=== PATIENT | female | born 1955 | race Caucasian/White ===

== ENCOUNTER → 2019-04-14 | Outpatient (CLI) | payer BC ==
--- NOTE | 2019-04-15 13:28 | MM ---
Reason for exam: screening (asymptomatic). Last mammogram was performed 1 year and 10 months ago. History: Patient is postmenopausal. Family history of breast cancer in mother. Physical Findings: A clinical breast exam by your physician is recommended on an annual basis and results should be correlated with mammographic findings. MG Screening Mammo w CAD Bilateral CC and MLO view(s) were taken. Prior study comparison: June 18, 2017, mammogram. The breast tissue is heterogeneously dense. This may lower the sensitivity of mammography. No suspicious abnormality. No significant changes when compared with prior studies. ASSESSMENT: Negative, BI-RAD 1 RECOMMENDATION: Routine screening mammogram of both breasts in 1 year.
== END | disposition home or self-care (01) ==
LOC: RADMAMWWP 13:51
PROVIDERS: ATTEND Family Medicine
DX: Z12.31 Encounter for screening mammogram for malignant neoplasm of breast (principal)
CPT/HCPCS: 77067

== ENCOUNTER → 2019-04-20 | Day surgery (SDC) | payer BC ==
[2019-04-18 12:41] VITALS: BMI 28.1
[~2019-04-20] MED LIST: GLUCAGON 1 MG/ML VIAL ONE; LACTATED RINGERS 1,000 ML IV SCH; LIDOCAINE 1% 20 ML VIAL (10MG/ML) FOR IV START INTRADERMA ONE; LIDOCAINE 1% INJ 10MG/ML (20 ML MDV) ONE; PROPOFOL 10 MG/ML 20 ML VIAL IV ONE
[2019-04-20 08:25] VITALS: RESP 18; TEMP 98
--- NOTE | 2019-04-20 09:10 | P.GSHP ---
History of Present Illness H&P Date: 04/20/19 Chief Complaint: Screening colonoscopy This a 63-year-old female who presents today for screening colonoscopy. Patient denies a significant GI complaints. Past Medical History Past Medical History: No Reported History History of Any Multi-Drug Resistant Organisms: None Reported Past Surgical History: No Surgical Hx Reported Past Anesthesia/Blood Transfusion Reactions: No Reported Reaction Additional Past Anesthesia/Blood Transfusion Reaction / Comment(s): no hx of anesthesia Smoking Status: Former smoker Past Alcohol Use History: Occasional Additional Past Alcohol Use History / Comment(s): Smoked as teen, quit 1974 Past Drug Use History: None Reported - Past Family History Mother Family Medical History: Cancer Medications and Allergies Home Medications Medication Instructions Recorded Confirmed Type Cholecalciferol [Vitamin D3 (25 4,000 unit PO DAILY 04/18/19 04/18/19 History Mcg = 1000 Iu)] Ibuprofen [Motrin Ib] 400 mg PO Q6H PRN 04/18/19 04/18/19 History Magnesium Oxide [Naik] 500 mg PO DAILY 04/18/19 04/18/19 History Sertraline HCl [Zoloft] 150 mg PO DAILY 04/18/19 04/18/19 History Allergies Allergy/AdvReac Type Severity Reaction Status Date / Time Penicillins Allergy Rash/Hives Verified 04/18/19 12:20 Surgical - Exam Vital Signs Temp Pulse Resp BP Pulse Ox 98 F 77 18 126/61 97 04/20/19 08:22 04/20/19 08:22 04/20/19 08:22 04/20/19 08:22 04/20/19 08:22 - General well developed, well nourished, no distress - Eyes PERRL - ENT normal pinna - Neck no masses - Respiratory normal expansion - Cardiovascular Rhythm: regular - Abdomen Abdomen: soft, non tender Assessment and Plan Assessment: We will perform screening colonoscopy.
--- NOTE | 2019-04-20 09:40 | P.OP ---
Date of Procedure: 04/20/19 Preoperative Diagnosis: Screening colonoscopy Postoperative Diagnosis: Incomplete colonoscopy, portion of sigmoid colon and rectum normal Procedure(s) Performed: Colonoscopy Anesthesia: MAC Surgeon: Benjamin Moore Estimated Blood Loss (ml): 5 Pathology: none sent Condition: stable Disposition: PACU Description of Procedure: The patient's placed on the endoscopy table in the lateral position. She received IV sedation. Digital rectal exam was performed which revealed no abnor malities. Flexible colonoscope was then placed patient anus and passed into the sigmoid colon. The; very tortuous. Scope could not be advanced. This point the colonoscope was replaced with a pediatric colonoscope and the colonoscope could not be advanced beyond the tight band in the sigmoid colon. At this point scope withdrawn. The sigmoid and rectum appeared normal. Patient was sent to recovery room. She was scheduled for a barium enema.
[2019-04-20 10:45] VITALS: BP 117/68; PULSE 61
--- NOTE | 2019-04-20 13:25 | FL ---
EXAMINATION TYPE: FL barium enema w air contrast DATE OF EXAM: 04/20/2019 COMPARISON: NONE HISTORY: Incomplete colonoscopy earlier today. TECHNIQUE: A double contrast barium enema study is performed. Total of 1.54 minutes of fluoroscopic time was utilized during procedure. 19 spot images are saved. FINDINGS: Computer Aided Design Technician view of the abdomen shows overall non-obstructive bowel gas pattern. Scattered pelvi c phleboliths are redemonstrated. There is successful contrast opacification to the cecum. There is some redundancy of the sigmoid colo n making evaluation for polyps suboptimal. In addition there is fairly moderate diverticular disease most prominent in the sigmoid colon. No obstructing or constricting lesion is present. No large polyp oid masses are identified. Appendix was filled and appeared normal. The terminal ileum was not refluxed. IMPRESSION: Moderate diverticulosis centered sigmoid colon level. Successful filling to the cecum wi thout constricting neoplasm.
== END | disposition home or self-care (01) ==
LOC: ORWHC2ENDO 08:10
PROVIDERS: ATTEND Surgery
DX: Z12.11 Encounter for screening for malignant neoplasm of colon (principal); Q43.8 Other specified congenital malformations of intestine; Z87.891 Personal history of nicotine dependence; Z79.899 Other long term (current) drug therapy; Z88.0 Allergy status to penicillin
CPT/HCPCS: 45330; 74280; J1610; J2001; J2704

== ENCOUNTER → 2019-06-04 | Outpatient (CLI) | payer BC ==
[2019-06-04 12:10] LABS: Basophils % (A) 1 %; Eosinophils # (A) 0.1 k/uL (0-0.7); Eosinophils % (A) 1 %; HCT 40.9 % (34.0-46.0); HGB 13.9 gm/dL (11.4-16.0); Lymphocytes # (A) 1.1 k/uL (1.0-4.8); Lymphocytes % (A) 23 %; MCH 30.3 pg (25.0-35.0); MCHC 33.9 g/dL (31.0-37.0); MCV 89.3 fL (80.0-100.0); Monocytes # (A) 0.2 k/uL (0-1.0); Monocytes % (A) 4 %; Neutrophils # (A) 3.4 k/uL (1.3-7.7); Neutrophils % (A) 69 %; Platelet Count 124 k/uL (150-450); RBC 4.58 m/uL (3.80-5.40); RDW 13.2 % (11.5-15.5); WBC 4.9 k/uL (3.8-10.6)
[2019-06-04 12:49] LABS: Potassium 4.6 mmol/L (3.5-5.1)
== END | disposition home or self-care (01) ==
LOC: LABPAT 11:23
PROVIDERS: ATTEND Surgery
DX: Z01.818 Encounter for other preprocedural examination (principal); Z01.812 Encounter for preprocedural laboratory examination; K57.92 Diverticulitis of intestine, part unspecified, without perforation or abscess without bleeding
CPT/HCPCS: 36415; 80051; 85025; 93005

== ENCOUNTER 2019-06-13 09:02 | Inpatient (IN) | payer BC ==
[~2019-06-13 09:02] MED LIST changes: +DEXAMETHASONE SOD PHOSPHATE 10 MG/ML 1 ML VIAL IV ONE; -GLUCAGON 1 MG/ML VIAL ONE; +HEPARIN SODIUM,PORCINE 5,000 UNIT/ML 1 ML VIAL SQ ONE; +HYDROmorphone 0.5 MG/0.5 ML SYRINGE IVP PRN; -LACTATED RINGERS 1,000 ML IV SCH; -LIDOCAINE 1% 20 ML VIAL (10MG/ML) FOR IV START INTRADERMA ONE; +LIDOCAINE 1% 20 ML VIAL (10MG/ML) FOR IV START INTRADERMA PRN; -LIDOCAINE 1% INJ 10MG/ML (20 ML MDV) ONE; +ONDANSETRON 4 MG/2 ML VIAL IVP ONE; +ONDANSETRON 4 MG/2 ML VIAL IVP PRN; -PROPOFOL 10 MG/ML 20 ML VIAL IV ONE; +SCOPOLAMINE 1.5MG/72HR PATCH TRANSDERM ONE; +metroNIDAZOLE-NS PMX 500 MG in SALINE 1 100ML.BAG IVPB ONE
[2019-06-13] MEDS: LACTATED RINGERS 1,000 ML IV SCH (09:40)
[2019-06-13] MEDS ORDERED: MIDAZOLAM 2 MG/2 ML VIAL IV ONE (09:58)
[2019-06-13] MEDS ORDERED: fentaNYL (PF) 50 MCG/ML 2 ML AMP IV ONE (09:59)
--- NOTE | 2019-06-13 10:33 | P.GSHP ---
History of Present Illness H&P Date: 06/13/19 Chief Complaint: Diverticulitis Is a 63-year-old female with history of diverticulitis. Patient presents today for low anterior section. Patient reversed surgery including possible colostomy, wound infection, bleeding. Past Medical History Past Medical History: No Reported History Additional Past Medical History / Comment(s): diverticulosis History of Any Multi-Drug Resistant Organisms: None Reported Past Surgical History: No Surgical Hx Reported Past Anesthesia/Blood Transfusion Reactions: No Reported Reaction Additional Past Anesthesia/Blood Transfusion Reaction / Comment(s): no hx of anesthesia Smoking Status: Former smoker - Past Family History Mother Family Medical History: Cancer Medications and Allergies Home Medications Medication Instructions Recorded Confirmed Type Cholecalciferol [Vitamin D3 (25 4,000 unit PO DAILY 04/18/19 06/13/19 History Mcg = 1000 Iu)] Magnesium Oxide [Naik] 500 mg PO DAILY 04/18/19 06/13/19 History Sertraline HCl [Zoloft] 150 mg PO DAILY 04/18/19 06/13/19 History Cyanocobalamin (Vitamin B-12) 1,000 mcg PO DAILY 06/08/19 06/13/19 History [Vitamin B-12] Allergies Allergy/AdvReac Type Severity Reaction Status Date / Time Penicillins Allergy Rash/Hives Verified 06/13/19 09:25 Surgical - Exam Vital Signs Temp Pulse Resp BP Pulse Ox 98.5 F 72 14 119/58 95 06/13/19 09:27 06/13/19 09:27 06/13/19 09:27 06/13/19 09:27 06/13/19 09:27 - General well developed, well nourished, no distress - ENT normal pinna - Neck no masses - Respiratory normal expansion - Cardiovascular Rhythm: regular - Abdomen Abdomen: soft, non tender Assessment and Plan Assessment: Chronic diverticulitis. We'll perform low anterior resection.
[2019-06-13] MEDS ORDERED: NALOXONE 0.4 MG/ML 1 ML VIAL IV PRN (10:37)
[2019-06-13] MEDS ORDERED: HYDROmorphone (PF) 1 MG/ML ONE (11:17)
[2019-06-13] MEDS ORDERED: GLYCOPYRROLATE 0.2 MG/ML 2 ML VIAL ONE (11:17)
[2019-06-13] MEDS ORDERED: diphenhydrAMINE 50 MG/ML 1 ML VIAL ONE (11:17)
[2019-06-13] MEDS ORDERED: ROCURONIUM BROMIDE 10 MG/ML 10 ML VIAL IV ONE (11:17)
[2019-06-13] MEDS ORDERED: SUCCINYLCHOLINE CHLORIDE 100 MG/5 ML SYR IV ONE (11:17)
[2019-06-13] MEDS ORDERED: fentaNYL (PF) 50 MCG/ML 2 ML AMP ONE (11:17)
[2019-06-13] MEDS ORDERED: MIDAZOLAM 2 MG/2 ML VIAL ONE (11:17)
[2019-06-13] MEDS ORDERED: NEOSTIGMINE 1 MG/ML 10 ML VIAL ONE (11:17)
[2019-06-13] MEDS ORDERED: LACTATED RINGERS 1,000 ML IV ONE ×2 (12:00)
[2019-06-13] MEDS ORDERED: METOCLOPRAMIDE 5 MG/ML 2 ML VIAL IVP PRN (14:03)
[2019-06-13] MEDS ORDERED: ONDANSETRON 4 MG/2 ML VIAL IVP PRN (14:03)
[2019-06-13] MEDS ORDERED: BENZOCAINE/MENTHOL LOZENG 1 EACH LOZENGE MUCOUS MEM PRN (14:03)
[2019-06-13] MEDS: ROPIVACAINE 400 MG, HYDROMORPHONE (PF) 5 MG in SODIUM CHLORIDE 0.9% 170 ML EPIDURAL PRN (14:37)
[2019-06-13 15:04] VITALS: BMI 28.0
[2019-06-13 15:39] LABS: African American GFR (CKD) >90 (>60 ml/min/1.73 sqM); Anion Gap 7 mmol/L; Blood Urea Nitrogen 16 mg/dL (7-17); Calcium 8.9 mg/dL (8.4-10.2); Carbon Dioxide 25 mmol/L (22-30); Chloride 108 mmol/L (98-107); Glucose 114 mg/dL (74-99); Non-African American GFR(CKD) >90 (>60 ml/min/1.73 sqM); Potassium 4.3 mmol/L (3.5-5.1); Sodium 140 mmol/L (137-145)
[2019-06-13 16:16] LABS: Basophils % (A) 0 %; Eosinophils # (A) 0.1 k/uL (0-0.7); Eosinophils % (A) 1 %; Lymphocytes # (A) 0.3 k/uL (1.0-4.8); Lymphocytes % (A) 3 %; MCH 29.3 pg (25.0-35.0); MCHC 32.5 g/dL (31.0-37.0); MCV 90.2 fL (80.0-100.0); Mean Platelet Volume 6.8; Monocytes # (A) 0.2 k/uL (0-1.0); Monocytes % (A) 2 %; Neutrophils # (A) 8.4 k/uL (1.3-7.7); Neutrophils % (A) 94 %; Platelet Count 121 k/uL (150-450); RBC 4.77 m/uL (3.80-5.40); RDW 13.3 % (11.5-15.5)
[2019-06-13] MEDS: KETOROLAC 30 MG/ML 1 ML VIAL IVP SCH ×2 (16:48→18:35)
[2019-06-13] MEDS: FAMOTIDINE 20 MG/2 ML VIAL IV SCH (20:16)
[2019-06-13] MEDS: D5-0.45% NACL WITH KCL 20MEQ/L 1,000 ML IV SCH (21:24)
[2019-06-14] MEDS: D5-0.45% NACL WITH KCL 20MEQ/L 1,000 ML IV SCH ×4 (02:49→23:28)
[2019-06-14] MEDS: LACTATED RINGERS 1,000 ML IV SCH (05:20)
--- NOTE | 2019-06-14 06:35 | P.PN ---
Progress Note - Text 06/14 615am 63-year-old female status post low anterior resection by Dr. Moore. Patient has an epidural catheter for postop pain control with the solution running at 4 mL an hour with a VAS of 2. No motor or sensory deficits noted. Plan to continue epidural infusion
[2019-06-14] MEDS: ALVIMOPAN 12 MG CAPSULE PO SCH ×2 (08:21→19:55)
[2019-06-14] MEDS: FAMOTIDINE 20 MG/2 ML VIAL IV SCH ×2 (08:21→19:55)
--- NOTE | 2019-06-14 14:38 | P.PN ---
Subjective Progress Note Date: 06/14/19 CHIEF COMPLAINT: Diverticulitis HISTORY OF PRESENT ILLNESS: 63-year-old female who is status post low anterior resection secondary to history of diverticulitis. Postop day #1. Patient examined this morning at the bedside. Patient reports her pain is tolerable. Epidural is currently infusing. Patient is tolerating clear liquid diet. She reports passing flatus and had a smal liquid BM. Vital signs are stable. PHYSICAL EXAM: VITAL SIGNS: Reviewed. GENERAL: Well-developed in no acute distress. HEENT: No sclera icterus. Extraocular movements grossly intact. Moist buccal mucosa. Head is atraumatic, normocephalic. ABDOMEN: Soft. Nondistended. Appropriate surgical tenderness. Surgical incision clean dry and intact without drainage. Abdominal binder present. NEUROLOGIC: Alert and oriented. Cranial nerves II through XII grossly intact. ASSESSMENT: 1. Diverticulitis, status post low anterior resection PLAN: 1. Continue clear liquid diet for today. Anticipate advancing diet tomorrow 2. Continue epidural catheter. Discontinue postop day #3 3. Continue Hernandez catheter will epidural in place 4. Increase activity as tolerated 5. Encourage incentive spirometer 10 times hour while awake Nurse practitioner note has been reviewed by physician. Signing provider agrees with the documented findings, assessment, and plan of care. Objective - Vital Signs Vital signs: Vital Signs Temp 97.6 F 06/14/19 07:00 Pulse 74 06/14/19 07:00 Resp 18 06/14/19 07:00 BP 92/57 06/14/19 07:00 Pulse Ox 95 06/14/19 07:00 Intake & Output 06/13/19 06/14/19 06/14/19 18:59 06:59 18:59 Intake Total 2136 1562.5 240 Output Total 320 450 Balance 1816 1112.5 240 Intake: IV 2136 Intake, IV Titration 1562.5 Amount D5-0.45% NaCl with KCl 1562.5 20Meq/l 1,000 ml @ 125 mls/hr IV .Q8H [facility] Rx#: [id number] Oral 240 Output: Urine 300 450 Estimated Blood Loss 20 Other: Voiding Method Indwelling Catheter Indwelling Catheter Indwelling Catheter - Labs CBC & Chem 7: 06/13/19 16:06 06/13/19 15:10 Labs: Abnormal Lab Results - Last 24 Hours (Table) 06/13/19 06/13/19 Range/Units 15:10 16:06 Plt Count 121 L (150-450) k/uL Neutrophils # 8.4 H (1.3-7.7) k/uL Lymphocytes # 0.3 L (1.0-4.8) k/uL Chloride 108 H (98-107) mmol/L Glucose 114 H (74-99) mg/dL
--- NOTE | 2019-06-14 16:03 | P.CONS ---
History of Present Illness - Reason for Consult Consult date: 06/14/19 Requesting physician: Benjamin Moore - Chief Complaint diverticulitis - History of Present Illness Janey Carrillo is a 63 yo F with PMH of recurrent diverticulitis, depression who is POD#1 after a scheduled LAR. Today she is feeling well, tolerated clear liquid diet with only minimal pain, no nausea, vomiting, difficulty breathing or fevers. She is passing gas and did have a small BM this morning. Review of Systems All systems: negative Constitutional: Denies chills, Denies fever Eyes: denies blurred vision, denies pain Ears, nose, mouth and throat: Denies headache, Denies sore throat Cardiovascular: Denies chest pain, Denies shortness of breath Respiratory: Denies cough Gastrointestinal: Reports as per HPI, Reports abdominal pain, Denies diarrhea, Denies nausea, Denies vomiting Genitourinary: Denies dysuria, Denies hematuria Musculoskeletal: Denies myalgias Integumentary: Denies pruritus, Denies rash Neurological: Denies numbness, Denies weakness Psychiatric: Denies anxiety, Denies depression Endocrine: Denies fatigue, Denies weight change Past Medical History Past Medical History: No Reported History Additional Past Medical History / Comment(s): diverticulosis History of Any Multi-Drug Resistant Organisms: None Reported Past Surgical History: No Surgical Hx Reported Past Anesthesia/Blood Transfusion Reactions: No Reported Reaction Additional Past Anesthesia/Blood Transfusion Reaction / Comm: no hx of anesthesia Past Psychological History: Depression Smoking Status: Former smoker Past Alcohol Use History: Occasional Additional Past Alcohol Use History / Comment(s): Smoked as teen, quit 1973 Past Drug Use History: None Reported - Past Family History Mother Family Medical History: Cancer Medications and Allergies Home Medications Medication Instructions Recorded Confirmed Type Cholecalciferol [Vitamin D3 (25 4,000 unit PO DAILY 04/18/19 06/13/19 History Mcg = 1000 Iu)] Magnesium Oxide [Naik] 500 mg PO DAILY 04/18/19 06/13/19 History Sertraline HCl [Zoloft] 150 mg PO DAILY 04/18/19 06/13/19 History Cyanocobalamin (Vitamin B-12) 1,000 mcg PO DAILY 06/08/19 06/13/19 History [Vitamin B-12] Allergies Allergy/AdvReac Type Severity Reaction Status Date / Time Penicillins Allergy Rash/Hives Verified 06/13/19 09:25 Physical Exam Vitals: Vital Signs Temp Pulse Resp BP Pulse Ox 06/14/19 07:00 97.6 F 74 18 92/57 95 06/14/19 01:40 98.3 F 65 99/54 94 L 06/13/19 20:00 98.6 F 69 18 102/63 96 06/13/19 16:00 99 108/66 06/13/19 15:45 66 97/58 06/13/19 15:30 72 101/62 Intake and Output 06/14/19 06/14/19 06/14/19 06:59 14:59 22:59 Intake Total 1125 480 Output Total 450 Balance 675 480 Intake: Intake, IV Titration 1125 Amount D5-0.45% NaCl with KCl 1125 20Meq/l 1,000 ml @ 125 mls/hr IV .Q8H [facility] Rx#: [id number] Oral 480 Output: Urine 450 Other: Voiding Method Indwelling Catheter # Voids 3 General: well nourished, well developed, NAD. Vitals reviewed Eyes: PERRL, EOMI, conjunctiva normal HENT: normocephalic, mucus membranes moist Neck: supple, no JVD Lungs: normal respiratory effort, no wheezes or rales CV: Regular rate and rhythm, no murmur. Peripheral pulses 2+ Abdomen: soft, nondistended, no organomegaly. Minimal generalized tenderness. Hypoactive bowel sounds Lymph: no cervical or axillary LAD Skin: warm and dry. Neuro: A&Ox3, normal mood and affect Results CBC & Chem 7: 06/13/19 16:06 06/13/19 15:10 Labs: Abnormal Lab Results - Last 24 Hours (Table) 06/13/19 06/13/19 Range/Units 15:10 16:06 Plt Count 121 L (150-450) k/uL Neutrophils # 8.4 H (1.3-7.7) k/uL Lymphocytes # 0.3 L (1.0-4.8) k/uL Chloride 108 H (98-107) mmol/L Glucose 114 H (74-99) mg/dL Assessment and Plan (1) Recurrent major depression in remission Current Visit: Yes Status: Acute Code(s): F33.40 - MAJOR DEPRESSIVE DISORDER, RECURRENT, IN REMISSION, UNSP SNOMED Code(s): 67999664 (2) Diverticulitis Current Visit: Yes Status: Acute Code(s): K57.92 - DVTRCLI OF INTEST, PART UNSP, W/O PERF OR ABSCESS W/O BLEED SNOMED Code(s): 194645378 Plan: 1. Diverticulitis s/p LAR. VSS/AF. Tolerating CLD. Advance diet per primary. Pain control. Encourage early ambulation 2. Recurrent MDD. Resume zoloft tomorrow
[2019-06-15] MEDS: LACTATED RINGERS 1,000 ML IV SCH (07:08)
[2019-06-15 07:28] LABS: African American GFR (CKD) >90 (>60 ml/min/1.73 sqM); Anion Gap 3 mmol/L; Blood Urea Nitrogen 9 mg/dL (7-17); Calcium 8.5 mg/dL (8.4-10.2); Carbon Dioxide 28 mmol/L (22-30); Chloride 107 mmol/L (98-107); Glucose 91 mg/dL (74-99); Non-African American GFR(CKD) >90 (>60 ml/min/1.73 sqM); Potassium 4.1 mmol/L (3.5-5.1); Sodium 138 mmol/L (137-145)
[2019-06-15 07:37] LABS: Basophils % (A) 0 %; Eosinophils # (A) 0.1 k/uL (0-0.7); Eosinophils % (A) 1 %; HCT 33.3 % (34.0-46.0); HGB 11.3 gm/dL (11.4-16.0); Lymphocytes # (A) 1.4 k/uL (1.0-4.8); Lymphocytes % (A) 22 %; MCH 30.7 pg (25.0-35.0); MCV 90.5 fL (80.0-100.0); Mean Platelet Volume 6.7; Monocytes # (A) 0.4 k/uL (0-1.0); Monocytes % (A) 6 %; Neutrophils # (A) 4.2 k/uL (1.3-7.7); Neutrophils % (A) 68 %; RBC 3.68 m/uL (3.80-5.40); RDW 13.4 % (11.5-15.5); WBC 6.2 k/uL (3.8-10.6)
[2019-06-15 08:13] LABS: Platelet Count 95 k/uL (150-450)
[2019-06-15] MEDS: D5-0.45% NACL WITH KCL 20MEQ/L 1,000 ML IV SCH ×2 (09:05→15:08)
[2019-06-15] MEDS: FAMOTIDINE 20 MG/2 ML VIAL IV SCH ×2 (09:05→20:39)
[2019-06-15] MEDS: SERTRALINE 50 MG TAB PO SCH (09:05)
[2019-06-15] MEDS: ALVIMOPAN 12 MG CAPSULE PO SCH (09:05)
--- NOTE | 2019-06-15 11:55 | P.PN ---
Subjective Progress Note Date: 06/15/19 CHIEF COMPLAINT: Diverticulitis HISTORY OF PRESENT ILLNESS: 63-year-old female who is status post low anterior resection secondary to history of diverticulitis. Postop day #2. Patient examined this morning at the bedside. Patient reports her pain is tolerable. Epidural is currently infusing. Patient is tolerating clear liquid diet. She reports passing flatus. Reports small bowel movement yesterday. Vital signs are stable. PHYSICAL EXAM: VITAL SIGNS: Reviewed. GENERAL: Well-developed in no acute distress. HEENT: No sclera icterus. Extraocular movements grossly intact. Moist buccal mucosa. Head is atraumatic, normocephalic. ABDOMEN: Soft. Nondistended. Appropriate surgical tenderness. Surgical incision clean dry and intact without drainage. Abdominal binder present. NEUROLOGIC: Alert and oriented. Cranial nerves II through XII grossly intact. ASSESSMENT: 1. Diverticulitis, status post low anterior resection PLAN: 1. Advance diet to full liquids 2. Continue epidural catheter. 3. We will discontinue epidural catheter and Hernandez tomorrow morning 4. Increase activity as tolerated 5. Encourage incentive spirometer 10 times hour while awake 6. Anticipate discharge home tomorrow Nurse practitioner note has been reviewed by physician. Signing provider agrees with the documented findings, assessment, and plan of care. Objective - Vital Signs Vital signs: Vital Signs Temp 98.4 F 06/15/19 09:12 Pulse 70 06/15/19 09:12 Resp 16 06/15/19 09:12 BP 130/55 06/15/19 09:12 Pulse Ox 98 06/15/19 09:12 Intake & Output 06/14/19 06/15/19 06/15/19 18:59 06:59 18:59 Intake Total 680 1562.5 Output Total 1800 Balance 680 -237.5 Intake: Intake, IV Titration 1562.5 Amount D5-0.45% NaCl with KCl 1562.5 20Meq/l 1,000 ml @ 125 mls/hr IV .Q8H [facility] Rx#: [id number] Oral 680 Output: Urine 1800 Other: Voiding Method Indwelling Catheter Indwelling Catheter # Voids 3 - Labs CBC & Chem 7: 06/15/19 06:50 06/15/19 06:50 Labs: Abnormal Lab Results - Last 24 Hours (Table) 06/15/19 Range/Units 06:50 RBC 3.68 L (3.80-5.40) m/uL Hgb 11.3 L (11.4-16.0) gm/dL Hct 33.3 L (34.0-46.0) % Plt Count 95 L (150-450) k/uL
--- NOTE | 2019-06-15 12:54 | P.PN ---
Progress Note - Text Anesthesia POD 2. Status Post low anterior resection under general endotracheal anesthesia with an epidrual catheter placed at T12 for post surgical pain releif. VAS (1, 3) with Ropivicaine 0.16 % and Dilaudid 20 mcg / cc running at 4 cc / hr. Lower extremity strength (for/4). No sedation. Site looks OK.
[2019-06-15] MEDS: ROPIVACAINE 400 MG, HYDROMORPHONE (PF) 5 MG in SODIUM CHLORIDE 0.9% 170 ML EPIDURAL PRN (15:06)
--- NOTE | 2019-06-15 15:29 | P.PN ---
Subjective Progress Note Date: 06/15/19 Janey Carrillo is a 63 yo F with PMH of recurrent diverticulitis, depression who is POD#1 after a scheduled LAR. Today she is feeling well, tolerated clear liquid diet with only minimal pain, no nausea, vomiting, difficulty breathing or fevers. She is passing gas and did have a small BM this morning. 06/15/2019 status post low anterior resection. Denies abdominal pain reports abdominal tenderness. Currently maintained on epidural pain pump, scheduled to be discontinued this morning. Positive bowel movement yesterday. Tolerating clear liquids with no nausea vomiting or diarrhea. Continues on IV fluid hydration. Afebrile, normal WBC. Denies chest pain, palpitations or shortness of breath. Hemoglobin decreased, 11.3. Objective - Vital Signs Vital signs: Vital Signs Temp 98 F 06/15/19 15:00 Pulse 78 06/15/19 15:00 Resp 17 06/15/19 15:00 BP 101/63 06/15/19 15:00 Pulse Ox 97 06/15/19 15:00 Intake & Output 06/14/19 06/15/19 06/15/19 18:59 06:59 18:59 Intake Total 680 1562.5 1048 Output Total 1800 1350 Balance 680 -237.5 -302 Intake: IV 1048 D5-0.45% NaCl with KCl 1000 20Meq/l 1,000 ml @ 125 mls/hr IV .Q8H [facility] Rx#: [id number] Ropivacaine 400 mg 48 Hydromorphone (Pf) 5 mg In Sodium Chloride 0.9% 170 ml @ Per Protocol EPIDURAL .Q0M PRN Rx#: [id number] Intake, IV Titration 1562.5 Amount D5-0.45% NaCl with KCl 1562.5 20Meq/l 1,000 ml @ 125 mls/hr IV .Q8H [facility] Rx#: [id number] Oral 680 Output: Urine 1800 1350 Uretheral (Hernandez) 1350 Other: Voiding Method Indwelling Catheter Indwelling Catheter Indwelling Catheter # Voids 3 - Exam General: well nourished, well developed, NAD. Vitals reviewed Eyes: PERRL, EOMI, conjunctiva normal HENT: normocephalic, mucus membranes moist Neck: supple, no JVD Lungs: normal respiratory effort, no wheezes or rales CV: Regular rate and rhythm, no murmur. Peripheral pulses 2+ Abdomen: soft, nondistended, no organomegaly. Minimal generalized tenderness. Abdominal binder present. Hypoactive bowel sounds Skin: warm and dry. Neuro: A&Ox3, normal mood and affect - Labs CBC & Chem 7: 06/15/19 06:50 06/15/19 06:50 Labs: Abnormal Lab Results - Last 24 Hours (Table) 06/15/19 Range/Units 06:50 RBC 3.68 L (3.80-5.40) m/uL Hgb 11.3 L (11.4-16.0) gm/dL Hct 33.3 L (34.0-46.0) % Plt Count 95 L (150-450) k/uL Assessment and Plan Assessment: (1) Recurrent major depression in remission Current Visit: Yes Status: Acute Code(s): F33.40 - MAJOR DEPRESSIVE DISORDER, RECURRENT, IN REMISSION, UNSP SNOMED Code(s): 71701266 (2) Diverticulitis status post LAR. Current Visit: Yes Status: Acute Code(s): K57.92 - DVTRCLI OF INTEST, PART UNSP, W/O PERF OR ABSCESS W/O BLEED SNOMED Code(s): 188725201 (3) postoperative anemia, suspect dilutional Plan: Continue on current medication regime ,monitoring and symptomatic treatment. Pathology pending. Zoloft resumed. Aggressive pulmonary toileting with incentive spirometer reinforced. Pain management/diet advancement as per surgery. Increase ambulation as tolerated. Close monitoring of CBC with repeat labs ordered for a.m. Discharge planning in progress for tomorrow as per surgery. Follow-up with PCP in 1 week. The impression and plan of care has been dictated as directed. : I performed a history and examination of this patient, discussed the same with the dictator. I agree with the dictator's note ,documented as a scribe. Any additional findings or plans will be noted.
[2019-06-16] MEDS: D5-0.45% NACL WITH KCL 20MEQ/L 1,000 ML IV SCH ×4 (04:54→23:45)
[2019-06-16 07:39] LABS: Basophils % (A) 0 %; Eosinophils # (A) 0.1 k/uL (0-0.7); Eosinophils % (A) 2 %; HCT 32.7 % (34.0-46.0); HGB 11.1 gm/dL (11.4-16.0); Lymphocytes # (A) 1.1 k/uL (1.0-4.8); Lymphocytes % (A) 18 %; MCH 30.7 pg (25.0-35.0); MCHC 33.9 g/dL (31.0-37.0); MCV 90.5 fL (80.0-100.0); Mean Platelet Volume 6.7; Monocytes # (A) 0.4 k/uL (0-1.0); Monocytes % (A) 6 %; Neutrophils # (A) 4.3 k/uL (1.3-7.7); Neutrophils % (A) 73 %; RBC 3.61 m/uL (3.80-5.40); RDW 13.1 % (11.5-15.5); WBC 5.9 k/uL (3.8-10.6)
[2019-06-16 07:40] LABS: Platelet Count 99 k/uL (150-450)
[2019-06-16 07:44] LABS: African American GFR (CKD) >90 (>60 ml/min/1.73 sqM); Anion Gap 2 mmol/L; Blood Urea Nitrogen 5 mg/dL (7-17); Calcium 8.3 mg/dL (8.4-10.2); Carbon Dioxide 30 mmol/L (22-30); Chloride 106 mmol/L (98-107); Glucose 93 mg/dL (74-99); Non-African American GFR(CKD) >90 (>60 ml/min/1.73 sqM); Potassium 3.8 mmol/L (3.5-5.1); Sodium 138 mmol/L (137-145)
--- NOTE | 2019-06-16 07:59 | P.PN ---
Progress Note - Text 06/16 720am 63-year-old female status post low anterior resection by Dr. messina. Patient seen and evaluated this morning was epidural solution running at 4 mL an hour she has a VAS of 1. No motor or sensory deficit, patient has been ambulating. Plan to DC epidural and the nurse was informed
[2019-06-16] MEDS: FAMOTIDINE 20 MG/2 ML VIAL IV SCH ×2 (08:14→20:36)
[2019-06-16] MEDS: SERTRALINE 50 MG TAB PO SCH (09:22)
[2019-06-16] MEDS: HYDROmorphone 1 MG/ML 1 ML SYRINGE IVP PRN ×3 (11:56→17:38)
--- NOTE | 2019-06-16 13:12 | P.PN ---
Subjective Progress Note Date: 06/16/19 CHIEF COMPLAINT: Diverticulitis HISTORY OF PRESENT ILLNESS: 63-year-old female who is status post low anterior resection secondary to history of diverticulitis. Postop day #3. Patient examined at the bedside with Dr. Moore. Epidural and Hernandez catheter were discontinued this morning. Patient reports her pain is tolerable at this time. She is tolerating liquid diet. Passing flatus. Vital signs are stable. PHYSICAL EXAM: VITAL SIGNS: Reviewed. GENERAL: Well-developed in no acute distress. HEENT: No sclera icterus. Extraocular movements grossly intact. Moist buccal mucosa. Head is atraumatic, normocephalic. ABDOMEN: Soft. Nondistended. Appropriate surgical tenderness. Surgical incision clean dry and intact without drainage. Abdominal binder present. NEUROLOGIC: Alert and oriented. Cranial nerves II through XII grossly intact. ASSESSMENT: 1. Diverticulitis, status post low anterior resection PLAN: 1. Continue full liquid diet 2. Pain control. Continue [place] as needed 3. Increase activity as tolerated 4. Encourage incentive spirometer 10 times hour while awake 5. Anticipate discharge home tomorrow Nurse practitioner note has been reviewed by physician. Signing provider agrees with the documented findings, assessment, and plan of care. Objective - Vital Signs Vital signs: Vital Signs Temp 99.7 F H 06/16/19 07:24 Pulse 79 06/16/19 07:24 Resp 16 06/16/19 07:24 BP 124/70 06/16/19 07:24 Pulse Ox 97 06/16/19 07:24 Intake & Output 06/15/19 06/16/19 06/16/19 18:59 06:59 18:59 Intake Total 1048 1500 Output Total 1350 3600 900 Balance -302 -2100 -900 Intake: IV 1048 D5-0.45% NaCl with KCl 1000 20Meq/l 1,000 ml @ 125 mls/hr IV .Q8H [facility] Rx#: [id number] Ropivacaine 400 mg 48 Hydromorphone (Pf) 5 mg In Sodium Chloride 0.9% 170 ml @ Per Protocol EPIDURAL .Q0M PRN Rx#: [id number] Intake, IV Titration 1500 Amount D5-0.45% NaCl with KCl 1500 20Meq/l 1,000 ml @ 125 mls/hr IV .Q8H [facility] Rx#: [id number] Output: Urine 1350 3600 900 Uretheral (Hernandez) 1350 1800 900 Other: Voiding Method Indwelling Catheter Indwelling Catheter - Labs CBC & Chem 7: 06/16/19 06:59 06/16/19 06:59 Labs: Abnormal Lab Results - Last 24 Hours (Table) 06/16/19 06/16/19 Range/Units 06:59 06:59 RBC 3.61 L (3.80-5.40) m/uL Hgb 11.1 L (11.4-16.0) gm/dL Hct 32.7 L (34.0-46.0) % Plt Count 99 L (150-450) k/uL BUN 5 L (7-17) mg/dL Calcium 8.3 L (8.4-10.2) mg/dL
[2019-06-16] MEDS: HYDROcodone/APAP 5-325MG 1 EACH TAB PO PRN (20:36)
--- NOTE | 2019-06-16 21:51 | P.PN ---
Subjective Progress Note Date: 06/16/19 Janey Carrillo is a 63 yo F with PMH of recurrent diverticulitis, depression who is POD#1 after a scheduled LAR. Today she is feeling well, tolerated clear liquid diet with only minimal pain, no nausea, vomiting, difficulty breathing or fevers. She is passing gas and did have a small BM this morning. 06/15/2019 status post low anterior resection. Denies abdominal pain reports abdominal tenderness. Currently maintained on epidural pain pump, scheduled to be discontinued this morning. Positive bowel movement yesterday. Tolerating clear liquids with no nausea vomiting or diarrhea. Continues on IV fluid hydration. Afebrile, normal WBC. Denies chest pain, palpitations or shortness of breath. Hemoglobin decreased, 11.3. 06/16. Epidural removed, she is having some mildly increased abdominal discomfort but is overall comfortable. Tolerating full liquid diet without nausea. Objective - Vital Signs Vital signs: Vital Signs Temp 98.2 F 06/16/19 19:26 Pulse 72 06/16/19 19:26 Resp 20 06/16/19 19:33 BP 119/69 06/16/19 19:26 Pulse Ox 96 06/16/19 19:26 Intake & Output 06/16/19 06/16/19 06/17/19 06:59 18:59 06:59 Intake Total 1500 Output Total 3600 1300 Balance -2100 -1300 Intake: Intake, IV Titration 1500 Amount D5-0.45% NaCl with KCl 1500 20Meq/l 1,000 ml @ 125 mls/hr IV .Q8H DARCI Rx#: [id number] Output: Urine 3600 1300 Uretheral (Hernandez) 1800 900 Other: Voiding Method Indwelling Catheter # Voids 1 - Exam Gen: alert, well developed, NAD HEENT: mucus membranes moist CV: RRR, no murmur Lungs: normal effort, clear throughout Abd: generalized TTP Ext: no edema - Labs CBC & Chem 7: 06/16/19 06:59 06/16/19 06:59 Labs: Abnormal Lab Results - Last 24 Hours (Table) 06/16/19 06/16/19 Range/Units 06:59 06:59 RBC 3.61 L (3.80-5.40) m/uL Hgb 11.1 L (11.4-16.0) gm/dL Hct 32.7 L (34.0-46.0) % Plt Count 99 L (150-450) k/uL BUN 5 L (7-17) mg/dL Calcium 8.3 L (8.4-10.2) mg/dL Assessment and Plan (1) Recurrent major depression in remission Current Visit: Yes Status: Acute Code(s): F33.40 - MAJOR DEPRESSIVE DISORDER, RECURRENT, IN REMISSION, UNSP SNOMED Code(s): 21880094 (2) Diverticulitis Current Visit: Yes Status: Acute Code(s): K57.92 - DVTRCLI OF INTEST, PART UNSP, W/O PERF OR ABSCESS W/O BLEED SNOMED Code(s): 639450632 Plan: 1. Diverticulitis s/p LAR. VSS/AF. Tolerating FLD. Advance diet per primary. Pain control. Encourage ambulation 2. Recurrent MDD. Resume zoloft today
[2019-06-17] MEDS: HYDROcodone/APAP 5-325MG 1 EACH TAB PO PRN (03:03)
[2019-06-17 07:27] VITALS: BP 147/70; PULSE 77; RESP 18; TEMP 99.4
[2019-06-17] MEDS: SERTRALINE 50 MG TAB PO SCH (07:38)
[2019-06-17] MEDS: FAMOTIDINE 20 MG/2 ML VIAL IV SCH (11:58)
[2019-06-17] MEDS: D5-0.45% NACL WITH KCL 20MEQ/L 1,000 ML IV SCH (11:58)
--- NOTE | 2019-06-17 13:04 | P.DS ---
Providers Date of admission: 06/13/19 09:02 Expected date of discharge: 06/17/19 Attending physician: Benjamin Moore Consults: 06/13/19 14:03 Consult Physician Routine Consulting Provider: Pierre Birmingham Consult Reason/Comments: Medical management Do you want consulting provider notified?: Yes Primary care physician: Francisca Jones Hospital Course: 63-year-old female who is status post low anterior resection secondary to history of diverticulitis. Patient is doing well postoperatively without any immediate complications. She is tolerating diet without nausea or vomiting. Passing flatus and having bowel movements. Pain control on oral medications. Vital signs have been stable. She is stable for discharge home today. Please see EMR for further hospital course details. Discharge Diagnosis: 1. Diverticulitis, status post low anterior resection Nurse practitioner note has been reviewed by physician. Signing provider agrees with the documented findings, assessment, and plan of care. Patient Condition at Discharge: Stable Plan - Discharge Summary Discharge Rx Participant: Yes New Discharge Prescriptions: New Hydrocodone/Acetaminophen [Colebrook 5-325] 1 tab PO Q6HR PRN 3 Days #12 tab PRN Reason: Pain No Action Cholecalciferol [Vitamin D3 (25 Mcg = 1000 Iu)] 4,000 unit PO DAILY Sertraline HCl [Zoloft] 150 mg PO DAILY Magnesium Oxide [Naik] 500 mg PO DAILY Cyanocobalamin (Vitamin B-12) [Vitamin B-12] 1,000 mcg PO DAILY Discharge Medication List Cholecalciferol [Vitamin D3 (25 Mcg = 1000 Iu)] 4,000 unit PO DAILY 04/18/19 [History] Magnesium Oxide [Naik] 500 mg PO DAILY 04/18/19 [History] Sertraline HCl [Zoloft] 150 mg PO DAILY 04/18/19 [History] Cyanocobalamin (Vitamin B-12) [Vitamin B-12] 1,000 mcg PO DAILY 06/08/19 [Histo ry] Hydrocodone/Acetaminophen [Colebrook 5-325] 1 tab PO Q6HR PRN 3 Days #12 tab 06/17/19 [Rx] Follow up Appointment(s)/Referral(s): Francisca Jones DO [Primary Care Provider] - 06/22/19 11:30 am Benjamin Moore MD [STAFF PHYSICIAN] - 06/23/19 4:00 pm Patient Instructions/Handouts: Bowel Resection (DC), Diverticulitis Diet (DC) Activity/Diet/Wound Care/Special Instructions: No driving while taking Colebrook No lifting over 10 pounds You may shower. No soaking or tub baths Very light activity until you are reevaluated at your follow up appointment with your surgeon
--- NOTE | 2019-06-21 17:03 | P.OP ---
Date of Procedure: 06/13/19 Preoperative Diagnosis: Diverticulitis Postoperative Diagnosis: Diverticulitis Procedure(s) Performed: Low anterior resection Anesthesia: CLARA Surgeon: Benjamin Moore Pathology: other (Sigmoid colon) Condition: stable Disposition: PACU Description of Procedure: DESCRIPTION OF PROCEDURE: The patient was placed on the operating table in the supine position. Patient received a general anesthesia. Patient was then placed in the dorsal lithotomy position. The patients abdomen was prepped and draped in the usual sterile fashion. Through a low midline incision, the abdomen was entered. The May retractor was placed in the wound. The stomach appeared normal. The small bowel appeared normal. The liver appeared normal. The right colon and transverse colon appeared normal. On the left colon, there was an extensive diverticulosis noted. The sigmoid colon was then mobilized by dividing the white line of Toldt with electrocautery. At this point, the proximal sigmoid colon was transected with a GI stapler after a window had been made in the mesentery. The distal sigmoid colon was then dissected. Mesentery was taken down between Kary clamps and ligated with #0 silk ties. At a point beyond the lesion, the bowel was then transected with a Proximate stapler. This was then removed. The splenic flexure was then taken down in order to provide adequate lengthening of the sigmoid colon. At this point, the auto purse-string suture device was placed across the proximal colon and fired. The colon was then opened. The 29 mm EEA anvil was then placed into the colon and then the purse-string was secured. The EEA stapler device was then placed in the patients anus and passed into the rectum. The nail for the EEA was then brought out through the distal rectum and then attached to the anvil. The EEA stapler device was then fired. The anastomosis was inspected. There were 2 good donuts of tissue removed from the EEA stapler. The anastomosis was then tested under water and there was no air leak seen. At this point the abdomen was then irrigated. There was no bleeding seen. The fascia was then closed with double stranded #1 PDS. The skin was closed with daniel. The patient tolerated the procedure well.
== END 2019-06-17 11:41 | disposition home or self-care (01) | DRG 330 ==
LOC: 2ORMAIN 09:02 → 4SSUR 13:37
PROVIDERS: ADMIT Surgery; ATTEND Surgery
PROC: 0DBN0ZZ Excision of Sigmoid Colon, Open Approach (ICD-10-PCS; principal; 2019-06-13 10:30)
DX: K57.92 Diverticulitis of intestine, part unspecified, without perforation or abscess without bleeding (principal); F33.40 Major depressive disorder, recurrent, in remission, unspecified; D64.9 Anemia, unspecified; Z79.899 Other long term (current) drug therapy; Z87.891 Personal history of nicotine dependence; Z88.0 Allergy status to penicillin
CPT/HCPCS: 80048; 85025; 86850; 86900; 86901; 88307

== ENCOUNTER → 2019-07-25 | Outpatient (CLI) | payer BC ==
[2019-07-25 11:35] LABS: Basophils % (A) 1 %; Eosinophils # (A) 0.1 k/uL (0-0.7); Eosinophils % (A) 2 %; HCT 41.7 % (34.0-46.0); HGB 13.9 gm/dL (11.4-16.0); Lymphocytes # (A) 1.3 k/uL (1.0-4.8); Lymphocytes % (A) 24 %; MCH 29.8 pg (25.0-35.0); MCHC 33.4 g/dL (31.0-37.0); MCV 89.1 fL (80.0-100.0); Monocytes # (A) 0.3 k/uL (0-1.0); Monocytes % (A) 5 %; Neutrophils # (A) 3.7 k/uL (1.3-7.7); Neutrophils % (A) 68 %; Platelet Count 138 k/uL (150-450); RBC 4.67 m/uL (3.80-5.40); RDW 13.5 % (11.5-15.5); WBC 5.4 k/uL (3.8-10.6)
== END | disposition home or self-care (01) ==
LOC: LABPAT 10:19
PROVIDERS: ATTEND Obstetrics & Gynecology Obstetrics
DX: Z01.812 Encounter for preprocedural laboratory examination (principal); N84.0 Polyp of corpus uteri
CPT/HCPCS: 36415; 85025

== ENCOUNTER 2019-08-02 07:26 | Day surgery (SDC) | payer BC ==
[2019-07-25 16:13] VITALS: BMI 27.8
[~2019-08-02 07:26] MED LIST changes: -HEPARIN SODIUM,PORCINE 5,000 UNIT/ML 1 ML VIAL SQ ONE; +LACTATED RINGERS 1,000 ML IV SCH; -ONDANSETRON 4 MG/2 ML VIAL IVP PRN; +Pre Op ABX Message 1 EACH MISC MISCELLANE ONE; -SCOPOLAMINE 1.5MG/72HR PATCH TRANSDERM ONE; +fentaNYL (PF) 50 MCG/ML 2 ML AMP IV PRN; -metroNIDAZOLE-NS PMX 500 MG in SALINE 1 100ML.BAG IVPB ONE
[2019-08-02] MEDS ORDERED: LIDOCAINE 1% INJ 10MG/ML (20 ML MDV) ONE (08:42)
[2019-08-02] MEDS ORDERED: fentaNYL (PF) 50 MCG/ML 2 ML AMP ONE (08:42)
[2019-08-02] MEDS ORDERED: PROPOFOL 10 MG/ML 20 ML VIAL IV ONE (08:42)
[2019-08-02] MEDS ORDERED: MIDAZOLAM 2 MG/2 ML VIAL ONE (08:42)
[2019-08-02 09:25] VITALS: TEMP 97.5
--- NOTE | 2019-08-02 09:29 | P.OP ---
Date of Procedure: 08/02/19 Preoperative Diagnosis: Endometrial polyp Postoperative Diagnosis: Same Procedure(s) Performed: Hysteroscopy, dilation and curettage Anesthesia: MAC Surgeon: Carin Watkins Estimated Blood Loss (ml): 5 IV fluids (ml): 200 Urine output (ml): 100 Pathology: other (Endometrial curettings, endometrial polyp) Condition: stable Disposition: PACU Indications for Procedure: Thickened endometrium with endometrial polyp Operative Findings: Large endometrial polyp otherwise normal and Susan cavity is visualized Description of Procedure: Patient is seen in the preoperative area and informed consent is obtained. All questions were answered and patient was taken back to the operating suite. Patient underwent general anesthesia with the anesthesia department. Patient was prepped and draped in normal sterile fashion in the dorsal lithotomy position. A red rubber catheter was used to drain the bladder of clear yellow urine. A weighted speculum was placed in the posterior vaginal vault the anterior lip of the cervix was visualized and grasped with a single-tooth tenaculum. The uterus was then sounded to 8 cm. The cervix then serially dilated to 15-Latvian. The hysteroscope was placed through the cervix and toward the endometrial cavity a large endometrial polyp was noted the other portions of the endometrial cavity appeared normal. At this point multiple pictures were taken and the hysteroscope was removed. At this time a sharp curettage was performed and endometrial polyp was noted to be removed intact. The endometrial cavity was noted have a gritty texture. The specimen was then sent to pathology for analysis. The cecal tooth tenaculum was taken off of the anterior lip of the cervix. Hemostasis was appreciated. All instruments removed from the bhavani ent's vaginal vault counts are correct 2 patient tolerated procedure well and was taken the recovery room awake in stable condition.
[2019-08-02 09:54] VITALS: RESP 16
[2019-08-02 10:00] VITALS: PULSE 66
[2019-08-02 10:14] VITALS: BP 104/76
== END 2019-08-02 10:35 | disposition home or self-care (01) ==
LOC: OR 07:26
PROVIDERS: ATTEND Obstetrics & Gynecology Obstetrics
DX: N84.0 Polyp of corpus uteri (principal); Z78.0 Asymptomatic menopausal state; Z79.899 Other long term (current) drug therapy; Z88.0 Allergy status to penicillin; Z83.6 Family history of other diseases of the respiratory system; Z82.49 Family history of ischemic heart disease and other diseases of the circulatory system; Z81.8 Family history of other mental and behavioral disorders; Z80.3 Family history of malignant neoplasm of breast
CPT/HCPCS: 88305; 58558; J2250; J1100; J2405; J2001; J3010; J2704

== ENCOUNTER 2024-11-24 06:12 | Emergency (ER) | payer BC, MEDICARE ==
--- NOTE | 2024-11-24 06:24 | ED ---
Chest Pain HPI - General Chief Complaint: Chest Pain Stated Complaint: chest pain Time Seen by Provider: 11/24/24 06:24 Source: patient, RN notes reviewed Mode of arrival: ambulatory Limitations: no limitations - History of Present Illness Initial Comments: This is a 69-year-old female previously healthy presenting to the emergency department with for complaint of left-sided chest pain that started approximately 45 minutes prior to arrival. Patient states that she was awake in her bed when the pain started. She states that it feels like a pulling type sensation rated as a 2 out of 10. She states that the pain is relatively constant overall mildly dull and subsided to a 1 to a 2 out of 10. She denies radiation of pain, associated shortness of breath or associated nausea. States that she did not feel mildly sweaty when the pain started. She denies history of DVT, PE, recent prolonged travel, recent surgeries, calf swelling or pain. 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 denies cardiac history, history of HTN, CAD/hyperlipidemia, or smoking history. - Related Data Home Medications Medication Instructions Recorded Confirmed No Known Home Medications 11/24/24 11/24/24 Allergies Allergy/AdvReac Type Severity Reaction Status Date / Time Penicillins Allergy Rash/Hives Verified 11/24/24 10:15 Review of Systems ROS Statement: Those systems with pertinent positive or pertinent negative responses have been documented in the HPI. ROS Other: All systems not noted in ROS Statement are negative. Past Medical History Past Medical History: No Reported History Additional Past Medical History / Comment(s): diverticulosis History of Any Multi-Drug Resistant Organisms: None Reported Past Surgical History: No Surgical Hx Reported Additional Past Surgical History / Comment(s): colon resection Past Anesthesia/Blood Transfusion Reactions: No Reported Reaction Additional Past Anesthesia/Blood Transfusion Reaction / Comment(s): no hx of anesthesia Past Psychological History: Depression Smoking Status: Never smoker Past Alcohol Use History: Occasional Past Drug Use History: None Reported - Past Family History Mother Family Medical History: Cancer General Exam Limitations: no limitations General appearance: alert, in no apparent distress Neck exam: Present: normal inspection. Absent: tenderness, meningismus, lymphadenopathy Respiratory exam: Present: normal lung sounds bilaterally. Absent: respiratory distress, wheezes, rales, rhonchi, stridor Cardiovascular Exam: Present: regular rate, normal rhythm, normal heart sounds. Absent: systolic murmur, diastolic murmur, rubs, gallop, clicks GI/Abdominal exam: Present: soft, normal bowel sounds. Absent: distended, tenderness, guarding, rebound, rigid Extremities exam: Present: normal inspection, full ROM, normal capillary refill. Absent: tenderness, pedal edema, joint swelling, calf tenderness Back exam: Present: normal inspection Course Vital Signs 11/24/24 11/24/24 11/24/24 06:14 06:42 07:20 Temperature 97.8 F Pulse Rate 72 65 58 L Respiratory 18 17 18 Rate Blood Pressure 158/75 130/55 116/57 O2 Sat by Pulse 100 100 99 Oximetry 11/24/24 11/24/24 09:08 11:08 Temperature 98.2 F Pulse Rate 61 61 Respiratory 18 18 Rate Blood Pressure 118/50 113/58 O2 Sat by Pulse 100 100 Oximetry Chest Pain MDM - MDM Was pt. sent in by a medical professional or institution ([facility]ano, PENSION CONSULTANT, urgent care, hospital, or shelter...) When possible be specific @ -No Did you speak to anyone other than the patient for history (EMS, parent, family, police, friend...)? What history was obtained from this source @ -No Did you review nursing and triage notes (agree or disagree)? Why? @ -I reviewed and agree with nursing and triage notes Were old charts reviewed (outside hosp., previous admission, EMS record, old EKG, old radiological studies, urgent care reports/EKG's, shelter records)? Report findings @ -No old charts were reviewed Differential Diagnosis (chest pain, altered mental status, abdominal pain women, abdominal pain men, vaginal bleeding, weakness, fever, dyspnea, syncope, headache, dizziness, GI bleed, back pain, seizure, CVA, palpatations, mental health, musculoskeletal)? @ -Differential Chest Pain: Stable Angina, Unstable Angina, STEMI, NSTEMI Aortic Dissection, Pneumothorax, Musculoskeletal, Esophageal Spasm GERD, Cholecystitis, Pancreatitis, Zoster, th is is not meant to be an all-inclusive list. EKG interpreted by me (3pts min.). @ -Completed at 628 sinus rhythm with noted PVC, ventricular rate 69, OK interval 140, QRS 81, QTc 411. X-rays interpreted by me (1pt min.). @ -Chest x-ray no acute cardiopulmonary process or disease CT interpreted by me (1pt min.). @ -None done U/S interpreted by me (1pt. min.). @ -None done What testing was considered but not performed or refused? (CT, X-rays, U/S, labs)? Why? @ -None What meds were considered but not given or refused? Why? @ -None Did you discuss the management of the patient with other professionals (professionals i.e. , PA, PENSION CONSULTANT, lab, RT, psych nurse, social service liaison, legal executive assistant, teacher, registration officer, upper caser)? Give summary @ -No Was smoking cessation discussed for >3mins.? @ -No Was critical care preformed (if so, how long)? @ -No Were there social determinants of health that impacted care today? How? (Homelessness, low income, unemployed, alcoholism, drug addiction, transportati on, low edu. Level, literacy, decrease access to med. care, retirement, rehab)? @ -No Was there de-escalation of care discussed even if they declined (Discuss DNR or withdrawal of care, Hospice)? DNR status @ -No What co-morbidities impacted this encounter? (DM, HTN, Smoking, COPD, CAD, Cancer, CVA, ARF, Chemo, Hep., AIDS, mental health diagnosis, sleep apnea, morbid obesity)? @ -None Was patient admitted / discharged? Hospital course, mention meds given and route, prescriptions, significant lab abnormalities, going to OR and other pertinent info. @ -discharged. 69-year-old female presenting to the emergency room for complaints of left-sided chest pain. EKG sinus rhythm with occasional PVCs noted. Initial vitals are stable. Pain is rated as a 2 out of 10 on initial presentation. She is provided with aspirin. Initial troponin is negative. Patient's heart score is 3 classified as moderate due to patient's history and age of [age] years old. Patient's second troponin is negative. Patient is elected to follow-up outpatient with primary care provider and cardiology. Patient states that she does have an appointment scheduled with her primary care provider tomorrow to review results of Holter monitor. Return parameters discussed. Case discussed with Dr. Junior Undiagnosed new problem with uncertain prognosis? @ -No Drug Therapy requiring intensive monitoring for toxicity (Heparin, Nitro, Insulin, Cardizem)? @ -No Were any procedures done? @ -No Diagnosis/symptom? @ -PVC, chest pain Acute, or Chronic, or Acute on Chronic? @ -Acute Uncomplicated (without systemic symptoms) or Complicated (systemic symptoms)? @ -Uncomplicated Side effects of treatment? @ -No Exacerbation, Progression, or Severe Exacerbation? @ -No Poses a threat to life or bodily function? How? (Chest pain, [place], [place], pneumonia, PE, COPD, DKA, ARF, appy, cholecystitis, CVA, Diverticulitis, Homicidal, Suicidal, threat to staff... and all critical care pts) @ -No Disposition Clinical Impression: Chest pain Disposition: HOME SELF-CARE Condition: Good Instructions (If sedation given, give patient instructions): Chest Pain (ED) Additional Instructions: Please return to the Emergency Department if symptoms worsen or any other concerns. Follow-up tomorrow as scheduled with your primary care provider. Is patient prescribed a controlled substance at d/c from ED?: No Referrals: None,Stated [REFERRING] - 1-2 days Time of Disposition: 10:53
[2024-11-24] MEDS: ASPIRIN 81 MG PO STA (06:41)
[2024-11-24 07:05] LABS: Basophils # (A) 0.05 10*3/uL (0.00-0.10); Eosinophils # (A) 0.17 10*3/uL (0.04-0.35); Eosinophils % (A) 3.5 %; HCT 43.1 % (37.2-46.3); HGB 15.2 g/dL (12.0-15.0); Immature Platelet Fraction 4.7 % (1.1-6.1); Lymphocytes # (A) 1.57 10*3/uL (0.90-5.00); Lymphocytes % (A) 31.9 %; MCH 30.8 pg (27.0-32.0); MCHC 35.3 g/dL (32.0-37.0); MCV 87.4 fL (80.0-97.0); Mean Platelet Volume 11.2 fL (9.5-12.2); Monocytes # (A) 0.36 10*3/uL (0.20-1.00); Monocytes % (A) 7.3 %; Neutrophils # (A) 2.76 10*3/uL (1.80-7.70); Neutrophils % (A) 56.1 %; Platelet Count 103 10*3/uL (140-440); RBC 4.93 10*6/uL (4.10-5.20); RDW 12.6 % (11.5-14.5); WBC 4.92 10*3/uL (4.50-10.00)
--- NOTE | 2024-11-24 07:09 | XR ---
EXAMINATION TYPE: XR chest 2V DATE OF EXAM: 11/24/2024 6:46 AM COMPARISON: None. CLINICAL INDICATION: Female, 69 years old with history of Chest Pain, TECHNIQUE: XR chest 2V view(s) obtained. FINDINGS: The heart size is normal. The pulmonary vasculature is normal. The lungs are clear. IMPRESSION: 1. No acute pulmonary process. [facility], , 11/24/2024 7:06 AM
[2024-11-24 07:29] VITALS: RESP 18
[2024-11-24 07:31] LABS: INR 0.9 (<1.2); Partial Thromboplastin Time 23.8 sec (22.0-30.0); Prothrombin Time 10.5 sec (10.0-12.5)
[2024-11-24 07:55] LABS: ALT 29 U/L (4-34); AST 30 U/L (14-36); African American GFR (CKD) >90 (>60 ml/min/1.73 sqM); Albumin 4.6 g/dL (3.5-5.0); Alkaline Phosphatase 75 U/L (38-126); Anion Gap 10 mmol/L; Blood Urea Nitrogen 18 mg/dL (7-17); Calcium 9.8 mg/dL (8.4-10.2); Carbon Dioxide 26 mmol/L (22-30); Chloride 105 mmol/L (98-107); Glucose 95 mg/dL (74-99); Lipase 112 U/L (23-300); Magnesium 2.3 mg/dL (1.6-2.3); Non-African American GFR(CKD) 90 (>60 ml/min/1.73 sqM); Potassium 3.7 mmol/L (3.5-5.1); Sodium 141 mmol/L (137-145); Total Bilirubin 0.9 mg/dL (0.2-1.3); Total Protein 7.3 g/dL (6.3-8.2)
[2024-11-24 09:11] VITALS: PULSE 61
[2024-11-24 11:12] VITALS: BP 113/58; TEMP 98.2
== END 2024-11-24 11:11 | disposition home or self-care (01) ==
LOC: EC 06:12
DX: R07.9 Chest pain, unspecified (principal); Z88.0 Allergy status to penicillin
CPT/HCPCS: 36415; 71046; 80053; 83690; 83735; 84484; 85025; 85610; 85730; 93005; 99285